=== PATIENT | male | born 1955 | race Caucasian/White ===

== ENCOUNTER 2024-09-19 11:55 | Emergency (ER) | payer BC, MEDICARE ==
[2024-09-19 12:11] VITALS: RESP 18
[2024-09-19] MEDS: KETOROLAC 15 MG/ML 1 ML VIAL IM STA (12:38)
[2024-09-19] MEDS: MORPHINE SULFATE 4 MG/ML SYRINGE IM STA (12:39)
--- NOTE | 2024-09-19 12:41 | XR ---
EXAMINATION TYPE: XR shoulder complete LT DATE OF EXAM: 09/19/2024 12:36 PM INDICATION: Patient age:Male; 69 years old; Reason for study: shoulder pain; COMPARISON: None TECHNIQUE: The left shoulder was examined in AP, internally rotated and scapular Y projections. . FINDINGS: No acute fracture or dislocation. Advanced osteoarthritic changes of the left shoulder with joint spa ce loss and [id number] contact with marginal spurring. Moderate AC joint arthropathy with superior spurring. No soft tissue swelling. IMPRESSION: 1. No acute osseous pathology. 2. Advanced osteoarthritic changes of the left shoulder with [id number] contact. 3. Moderate AC joint arthropathy. [facility], , 09/19/2024 12:39 PM
--- NOTE | 2024-09-19 12:54 | ED ---
Trauma HPI - General Chief Complaint: Extremity Injury, Upper Stated Complaint: L arm pain Time Seen by Provider: 09/19/24 12:05 Source: patient Mode of arrival: ambulatory Limitations: no limitations - History of Present Illness Initial Comments: 69-year-old male presents to the emergency department reporting pain in his left arm patient was working out 1 hour ago when he felt a pop in his left upper arm. Concerned about a bicep tear. He has had significant pain. He did not take anything for the pain before coming in. He denies any shoulder or elbow pain. Does have limited range of motion when attempting to do a curl. He denies any numbness, tingling or weakness in his arm. He is right-hand dominant. Typically follows with Dr. Wright from OA. He denies any weakness in his leg. No other alleviating, precipitating or modifying factors - Related Data Previous Rx's Medication Instructions Recorded HYDROcodone/APAP 10-325MG [Southold 1 tab PO Q4H PRN #18 tab 09/19/24 10-325] Ibuprofen [Motrin] 600 mg PO Q8HR PRN #30 tab 09/19/24 Allergies Allergy/AdvReac Type Severity Reaction Status Date / Time No Known Allergies Allergy Verified 09/19/24 12:07 Review of Systems ROS Statement: Those systems with pertinent positive or pertinent negative responses have been documented in the HPI. ROS Other: All systems not noted in ROS Statement are negative. Past Medical History Past Medical History: Asthma, Osteoarthritis (OA) Past Surgical History: Hernia Repair Additional Past Surgical History / Comment(s): L and R shoulder sx, L knee replacement Smoking Status: Never smoker Past Alcohol Use History: Occasional Past Drug Use History: None Reported General Exam Limitations: no limitations General appearance: alert, in no apparent distress Neck exam: Present: normal inspection. Absent: tenderness, meningismus, lymphadenopathy Extremities exam: Present: tenderness (To palpation of the left bicep. There is some fullness to the bicep. Pain with curl. Equal residential fee appraiser strength. 2+ radial and ulnar pulses no shoulder or elbow pain) Course Vital Signs 09/19/24 09/19/24 12:07 14:11 Temperature 97.4 F L 97.7 F Pulse Rate 66 68 Respiratory 18 18 Rate Blood Pressure 176/96 154/86 O2 Sat by Pulse 97 98 Oximetry Medical Decision Making - Medical Decision Making Was pt. sent in by a medical professional or institution (LISA Franco, VACUUM EXTRACTOR OPERATOR, urgent care, hospital, or prison...) When possible be specific @ -No Did you speak to anyone other than the patient for history (EMS, parent, family, police, friend...)? What history was obtained from this source @ -No Did you review nursing and triage notes (agree or disagree)? Why? @ -I reviewed and agree with nursing and triage notes Were old charts reviewed (outside hosp., previous admission, EMS record, old EKG, old radiological studies, urgent care reports/EKG's, prison records)? Report findings @ -No old charts were reviewed Differential Diagnosis (chest pain, altered mental status, abdominal pain women, abdominal pain men, vaginal bleeding, weakness, fever, dyspnea, syncope, headache, dizziness, GI bleed, back pain, seizure, CVA, palpatations, mental health, musculoskeletal)? @ -Differential Musculoskeletal Muscular strain, contusion, ligament sprain, fracture, arthritis, septic arthritis, bursitis, cellulitis, muscle spasm, nerve compression, DVT, arterial occlusion, herpes zoster, electrolyte abnormality, tumor.... This is not meant to be in all inclusive list EKG interpreted by me (3pts min.). @ -Not done X-rays interpreted by me (1pt min.). @ -Yes and demonstrates no acute bony process CT interpreted by me (1pt min.). @ -None done U/S interpreted by me (1pt. min.). @ -None done What testing was considered but not performed or refused? (CT, X-rays, U/S, labs)? Why? @ -None What meds were considered but not given or refused? Why? @ -None Did you discuss the management of the patient with other professionals (professionals i.e. LISA Franco, VACUUM EXTRACTOR OPERATOR, lab, RT, psych nurse, social services technician, systems protection technician, teacher, fiscal officer, case monitor)? Give summary @ -Spoke with case monitor who does attempt to set up the patient appointment with Dr. Wright as this is his orthopedic Was smoking cessation discussed for >3mins.? @ -No Was critical care preformed (if so, how long)? @ -No Were there social determinants of health that impacted care today? How? (Homelessness, low income, unemployed, alcoholism, drug addiction, transportation, low edu. Level, literacy, decrease access to med. care, fdc, rehab)? @ -No Was there de-escalation of care discussed even if they declined (Discuss DNR or withdrawal of care, Hospice)? DNR status @ -No What co-morbidities impacted this encounter? (DM, HTN, Smoking, COPD, CAD, Cancer, CVA, ARF, Chemo, Hep., AIDS, mental health diagnosis, sleep apnea, morbid obesity)? @ -None Was patient admitted / discharged? Hospital course, mention meds given and route, prescriptions, significant lab abnormalities, going to OR and other pertinent info. @ -Upon arrival patient seen and evaluated in room 32. Thorough history and physical exam was performed. Patient administered 4 mg of morphine. He does go for x-ray. Results are discussed with the patient. High concern for ligamentous versus tendon injury. At this time the patient is placed in a sling. He is given medications for pain control. He is to alternate Motrin with Southold every 4 hours. Follow-up with Dr. Wright in office at scheduled appointment for MRI and return for any new or worsening symptoms Undiagnosed new problem with uncertain prognosis? @ -Yes Drug Therapy requiring intensive monitoring for toxicity (Heparin, Nitro, Insulin, Cardizem)? @ -No Were any procedures done? @ -No Diagnosis/symptom? @ -Acute left arm pain, possible tendon injury Acute, or Chronic, or Acute on Chronic? @ -Acute Uncomplicated (without systemic symptoms) or Complicated (systemic symptoms)? @ -Uncomplicated Side effects of treatment? @ -No Exacerbation, Progression, or Severe Exacerbation? @ -No Poses a threat to life or bodily function? How? (Chest pain, USA, ID, pneumonia, PE, COPD, DKA, ARF, appy, cholecystitis, CVA, Diverticulitis, Homicidal, Suicidal, threat to staff... and all critical care pts) @ -No Disposition Clinical Impression: Biceps tendon tear, Left shoulder pain Disposition: HOME SELF-CARE Condition: Stable Instructions (If sedation given, give patient instructions): Tendon Rupture (ED) Additional Instructions: Alternate the pain medications every 4 hours. Please follow-up with Dr. Wright at your scheduled appointment. Wear the sling. Take the pain medications as instructed. Return for any new or worsening symptoms Prescriptions: Ibuprofen [Motrin] 600 mg PO Q8HR PRN #30 tab PRN Reason: Pain HYDROcodone/APAP 10-325MG [Southold 10-325] 1 tab PO Q4H PRN #18 tab PRN Reason: pain Is patient prescribed a controlled substance at d/c from ED?: Yes When asked, does pt state using other controlled substances?: No If prescribed controlled substance>3 days was MAPS reviewed?: Prescribed <3 Days If opioid is for acute pain is fill amount 7 days or less?: Yes Referrals: Marvin Lobato MD [Primary Care Provider] - 1-2 days Wilmar Wright MD [STAFF PHYSICIAN] - 10/01/24 3:00 pm (You will have paperwork to complete. Please bring ID cards and insurance cards.) Time of Disposition: 12:53
[2024-09-19 14:12] VITALS: BP 154/86; PULSE 68; TEMP 97.7
== END 2024-09-19 14:12 | disposition home or self-care (01) ==
LOC: EC 11:55
DX: S46.212A Strain of muscle, fascia and tendon of other parts of biceps, left arm, initial encounter (principal); X58.XXXA Exposure to other specified factors, initial encounter
CPT/HCPCS: 73030; 99283; 96372 ×2; J2270; J1885